=== PATIENT | female | born 1965 | race Two or more races ===

== ENCOUNTER 2022-05-25 18:04 | Emergency (ER) | payer OTHER ==
[~2022-05-25] VITALS: Ht 152.4 cm; Wt 49.9 kg
[2022-05-25 18:21] VITALS: BP 125/75
[2022-05-25] MEDS ORDERED: LIDOCAINE 0.5% HCL 50 ML VIAL IJ ONE (19:30)
[2022-05-25] MEDS ORDERED: LIDOCAINE /MPF 1% VIAL 5 ML VIAL ONE (20:01)
[2022-05-25] MEDS ORDERED: IBUP-1953 PO (21:16)
[2022-05-25] MEDS ORDERED: CEPH500C2 PO (21:16)
--- NOTE | 2022-05-25 21:35 | NUR ---
Patient discharged to home in stable condition. Written and verbal after care instructions given. Patient verbalizes understanding of instruction. Pt ambulatory with a steady gait
== END 2022-05-25 21:36 | disposition home or self-care (01) ==
LOC: ER 18:11
DX: L03.011 Cellulitis of right finger (principal); Z79.899 Other long term (current) drug therapy
CPT/HCPCS: 10060; 99282; J3490; A6253

== ENCOUNTER 2024-06-01 07:15 | Emergency (ER) | payer OTHER ==
[~2024-06-01] VITALS: Ht 152.4 cm; Wt 50.8 kg
[~2024-06-01 07:15] MED LIST: CEPH500C2 PO; IBUP-1953 PO
[2024-06-01] MEDS ORDERED: SILV20CR13 TP (07:41)
[2024-06-01] MEDS ORDERED: SILVER SULFADIAZINE CREAM 25 GM TUBE ONE (07:43)
[2024-06-01] MEDS: SILVER SULFADIAZINE CREAM 25 GM TUBE TP ONE (07:54)
[2024-06-01 07:59] VITALS: BP 131/78; TEMP 98.2; O2SAT 99
== END 2024-06-01 07:50 | disposition home or self-care (01) ==
LOC: ER 07:20
DX: T23.202A Burn of second degree of left hand, unspecified site, initial encounter (principal); Z60.2 Problems related to living alone; X11.8XXA Contact with other hot tap-water, initial encounter; Y93.89 Activity, other specified; Y92.098 Other place in other non-institutional residence as the place of occurrence of the external cause; Y99.8 Other external cause status

== ENCOUNTER 2024-06-04 17:14 | Emergency (ER) | payer OTHER ==
[~2024-06-04] VITALS: Ht 152.4 cm; Wt 49.9 kg
[~2024-06-04 17:14] MED LIST changes: +SILV20CR13 TP
[2024-06-04 17:40] VITALS: BP 136/95; TEMP 100.1; O2SAT 97
[2024-06-04] MEDS ORDERED: AMOX-430 PO (17:49)
== END 2024-06-04 18:24 | disposition home or self-care (01) ==
LOC: ER 17:38
DX: S60.371A Other superficial bite of right thumb, initial encounter (principal); Z60.2 Problems related to living alone; W54.0XXA Bitten by dog, initial encounter; Y93.89 Activity, other specified; Y92.89 Other specified places as the place of occurrence of the external cause; Y99.8 Other external cause status

== ENCOUNTER 2025-05-11 03:08 | Emergency (ER) | payer OTHER ==
[~2025-05-11] VITALS: Ht 152.4 cm; Wt 59.0 kg
[~2025-05-11 03:08] MED LIST changes: +AMOX-430 PO
[2025-05-11 03:29] VITALS: BP 124/67; TEMP 98.4; O2SAT 98
[2025-05-11] MEDS ORDERED: CLIN300C12 PO (04:57)
[2025-05-11] MEDS ORDERED: CLINDAMYCIN HCL 150 MG CAPSULE ONE (05:01)
[2025-05-11] MEDS: CLINDAMYCIN HCL 150 MG CAPSULE PO ONE (05:10)
== END 2025-05-11 05:12 | disposition home or self-care (01) ==
LOC: ER 03:11
DX: L03.012 Cellulitis of left finger (principal)

== ENCOUNTER 2025-06-04 20:26 | Emergency (ER) | payer OTHER ==
[~2025-06-04] VITALS: Ht 160 cm; Wt 61.2 kg
[~2025-06-04 20:26] MED LIST changes: +CLIN300C12 PO
[2025-06-04] MEDS ORDERED: LIDOCAINE 1% INJ 50 ML MDV IJ ONE (22:49)
[2025-06-04] MEDS ORDERED: ACETAMINOPHEN 325 MG TABLET ONE (22:49)
[2025-06-04] MEDS: LIDOCAINE 1% INJ 50 ML MDV IJ ONE (22:50)
[2025-06-04] MEDS: ACETAMINOPHEN 325 MG TABLET PO ONE (22:50)
[2025-06-04] MEDS ORDERED: BACI/NEOM/POLY B OINT PKT 1 UDPKT PACKET ONE (23:28)
[2025-06-04] MEDS ORDERED: CEPHALEXIN MONOHYDRATE 500 MG CAPSULE PO ONE (23:28)
[2025-06-04] MEDS: BACI/NEOM/POLY B OINT PKT 1 UDPKT PACKET TP ONE (23:29)
[2025-06-04] MEDS ORDERED: SULFAMETH/TRIMETH 800/160 MG 1 UDTAB TABLET ONE (23:29)
[2025-06-04] MEDS: SULFAMETH/TRIMETH 800/160 MG 1 UDTAB TABLET PO ONE (23:29)
[2025-06-04] MEDS: CEPHALEXIN MONOHYDRATE 500 MG CAPSULE PO ONE (23:29)
[2025-06-04] MEDS ORDERED: CEFA500C PO (23:39)
[2025-06-04] MEDS ORDERED: SULF1TAB48 PO (23:39)
[2025-06-04 23:53] VITALS: BP 130/78; TEMP 98.2; O2SAT 98
== END 2025-06-04 23:54 | disposition home or self-care (01) ==
LOC: ER 20:34
DX: M79.644 Pain in right finger(s) (principal); Z88.7 Allergy status to serum and vaccine
CPT/HCPCS: J3490